=== PATIENT | male | born 1960 | race Caucasian/White ===

== ENCOUNTER → 2016-10-19 | Outpatient (CLI) | payer MEDICAID ==
[~2016-10-19] MED LIST: ALBU6.7H INH; AMOX1TAB64 PO; FLUT100B INH; FLUT1AER IH; HYDR-3138 PO; IPRA12.9 INH; METO10TA82 PO; OXYC-223 PO; OXYC1TAB8 PO; TAMS-11 PO
== END | disposition home or self-care (01) ==
LOC: RAD 10:45
PROVIDERS: ATTEND Internal Medicine Cardiovascular Disease
DX: M19.011 Primary osteoarthritis, right shoulder (principal); M25.711 Osteophyte, right shoulder; M81.0 Age-related osteoporosis without current pathological fracture; M25.741 Osteophyte, right hand; M25.862 Other specified joint disorders, left knee; M25.861 Other specified joint disorders, right knee; M25.572 Pain in left ankle and joints of left foot; M25.571 Pain in right ankle and joints of right foot
CPT/HCPCS: 73565; 77077

== ENCOUNTER 2017-04-09 12:53 | Emergency (ER) | payer MEDICAID ==
[~2017-04-09] VITALS: Ht 185.4 cm; Wt 118.0 kg
[~2017-04-09 12:53] MED LIST changes: -HYDR-3138 PO; +HYDR-3237 PO; -OXYC-223 PO; +OXYC-306 PO
[2017-04-09 13:29] LABS: HEMATOCRIT 46.3 % (39.2-51.8); HEMOGLOBIN 16.1 g/dL (13.7-18.0); WHITE BLOOD COUNT 7.9 x10^3/uL (3.4-10)
[2017-04-09 13:41] LABS: ASPARTATE AMINO TRANSFERASE 36 U/L (15-37); BLOOD UREA NITROGEN 9 mg/dL (7-18)
[2017-04-09 13:45] LABS: DAU SCREEN DISCLAIMER
[2017-04-09 13:48] LABS: ACETAMINOPHEN < 2 mcg/mL (10-30)
[2017-04-09 16:31] VITALS: BP 128/65
== END 2017-04-09 16:33 | disposition home or self-care (01) ==
LOC: ED 14:25
DX: R45.851 Suicidal ideations (principal); F17.210 Nicotine dependence, cigarettes, uncomplicated; Z90.49 Acquired absence of other specified parts of digestive tract; N40.0 Benign prostatic hyperplasia without lower urinary tract symptoms
CPT/HCPCS: 36415; 80053; 80307; 80329; 85025; 99284; G0480

== ENCOUNTER 2020-11-07 11:47 | Outpatient (CLI) | payer MEDICARE, MEDICAID ==
[~2020-11-07 11:47] MED LIST changes: -ALBU6.7H INH; +ALBU6.7H8 INH; -OXYC-306 PO; +OXYC1TAB16 PO
== END 2020-11-07 23:59 | disposition home or self-care (01) ==
LOC: CFH 11:47
PROVIDERS: ATTEND Family Medicine
DX: Z12.2 Encounter for screening for malignant neoplasm of respiratory organs (principal); J43.2 Centrilobular emphysema; F17.210 Nicotine dependence, cigarettes, uncomplicated
CPT/HCPCS: 71271